=== PATIENT | male | born 1990 | race Caucasian/White ===

== ENCOUNTER 2020-03-13 09:23 | Emergency (ER) | payer BC ==
[~2020-03-13] VITALS: Ht 177.8 cm; Wt 82.0 kg
[2020-03-13 09:44] VITALS: BP 151/84
[2020-03-13 09:59] LABS: BASOPHILS % 0.5 % (0.0-2.0); EOSINOPHILS % 0.6 % (0.0-5.0); HEMATOCRIT. 42.3 % (42.0-52.0); HEMOGLOBIN. 14.6 g/dL (14.0-18.0); LYMPHOCYTES % 19.1 % (20.0-50.0); MEAN CORPUSCULAR HEMOGLOBIN 31.4 pg (28.0-32.0); MEAN CORPUSCULAR VOLUME 90.7 fL (80.0-94.0); MEAN PLATELET VOLUME 8.3 fl (7.4-10.4); MONOCYTES % 13.2 % (2.0-8.0); NEUTROPHILS % 66.6 % (40.0-76.0); PLATELET 184 x1000/uL (130-400); RED BLOOD CELL COUNT 4.67 mill/uL (4.7-6.1)
[2020-03-13 10:04] LABS: CHLORIDE 105 mEq/L (98-107)
[2020-03-13 10:08] LABS: ETHANOL BLOOD < 10 mg/dL
== END 2020-03-13 12:23 | disposition home or self-care (01) ==
LOC: ER 09:23
DX: F20.9 Schizophrenia, unspecified (principal); Z76.0 Encounter for issue of repeat prescription; R00.0 Tachycardia, unspecified; R03.0 Elevated blood-pressure reading, without diagnosis of hypertension
CPT/HCPCS: 36415; 71045; 80053; 80307; 80320; 80329; 85025; 99284; G0480

== ENCOUNTER 2020-03-14 03:23 | Emergency (ER) | payer BC ==
[~2020-03-14] VITALS: Ht 182.9 cm; Wt 87.0 kg
[2020-03-14] MEDS ORDERED: ZIPRASIDONE MESYLATE 20MG/VIAL IM ONE (05:30)
[2020-03-14 06:00] VITALS: BP 129/79
== END 2020-03-14 06:42 | disposition home or self-care (01) ==
LOC: ER 03:23
DX: F41.9 Anxiety disorder, unspecified (principal); F20.9 Schizophrenia, unspecified; I49.9 Cardiac arrhythmia, unspecified; Z88.8 Allergy status to other drugs, medicaments and biological substances; Z88.1 Allergy status to other antibiotic agents
CPT/HCPCS: 93005; 99283; J3486

== ENCOUNTER 2020-05-03 08:11 | Emergency (ER) | payer BC, MEDICAID ==
[~2020-05-03] VITALS: Ht 177.8 cm; Wt 73.0 kg
[2020-05-03 08:17] VITALS: BP 144/86
[2020-05-03] MEDS ORDERED: ACETAMINOPHEN 325MG TABLET PO ONE (08:45)
[2020-05-03 11:19] LABS: CHLORIDE 105 mEq/L (98-107)
[2020-05-03 11:22] LABS: BASOPHILS % 0.5 % (0.0-2.0); EOSINOPHILS % 0.9 % (0.0-5.0); HEMATOCRIT. 42.8 % (42.0-52.0); HEMOGLOBIN. 14.5 g/dL (14.0-18.0); LYMPHOCYTES % 22.5 % (20.0-50.0); MEAN CORPUSCULAR HEMOGLOBIN 30.6 pg (28.0-32.0); MEAN CORPUSCULAR VOLUME 90.6 fL (80.0-94.0); MEAN PLATELET VOLUME 8.5 fl (7.4-10.4); MONOCYTES % 12.2 % (2.0-8.0); NEUTROPHILS % 63.9 % (40.0-76.0); PLATELET 169 x1000/uL (130-400); RED BLOOD CELL COUNT 4.73 mill/uL (4.7-6.1); RED CELL DISTRIBUTION WIDTH 13.4 % (11.6-14.6)
[2020-05-03 11:27] LABS: INR 1.1; PROTHROMBIN TIME 11.9 sec (9.6-11.0)
[2020-05-03] MEDS ORDERED: POTASSIUM CHLORIDE 20MEQ TABLET SR PO ONE (12:15)
[2020-05-03] MEDS ORDERED: DIATR MEGLU/DIATRIZOATE SOLN 120ML ONE ×2 (15:40→16:34)
== END 2020-05-03 18:26 | disposition home or self-care (01) ==
LOC: ER 08:33 → EDBEDREQ 11:54 → EDBEDREQTM 12:02 → EDBEDREQ 12:02 → CANRESERV 15:45 → ENRESERV 15:45 → ER 18:26 → CANBEDREQ 19:40
DX: K56.1 Intussusception (principal); F20.9 Schizophrenia, unspecified
CPT/HCPCS: 36415; 74018; 74176; 74250; 80053; 83690; 85025; 85610; 99285; Q9963

== ENCOUNTER 2020-05-18 13:21 | Emergency (ER) | payer BC, MEDICAID ==
[~2020-05-18] VITALS: Ht 182.9 cm; Wt 91.0 kg
[2020-05-18 14:37] LABS: BASOPHILS % 0.6 % (0.0-2.0); HEMATOCRIT. 44.2 % (42.0-52.0); LYMPHOCYTES % 24.4 % (20.0-50.0); MEAN CORPUSCULAR HEMOGLOBIN 30.2 pg (28.0-32.0); MEAN CORPUSCULAR VOLUME 88.9 fL (80.0-94.0); MEAN PLATELET VOLUME 8.3 fl (7.4-10.4); MONOCYTES % 10.8 % (2.0-8.0); NEUTROPHILS % 62.2 % (40.0-76.0); PLATELET 161 x1000/uL (130-400); RED BLOOD CELL COUNT 4.97 mill/uL (4.7-6.1); RED CELL DISTRIBUTION WIDTH 12.9 % (11.6-14.6)
[2020-05-18 14:38] VITALS: BP 133/71
[2020-05-18 14:44] LABS: CHLORIDE 108 mEq/L (98-107)
[2020-05-18 14:49] LABS: ETHANOL BLOOD < 10 mg/dL
== END 2020-05-18 15:28 | disposition left against medical advice (07) ==
LOC: ER 13:29
DX: S09.8XXA Other specified injuries of head, initial encounter (principal); F20.9 Schizophrenia, unspecified; F22 Delusional disorders; Z88.1 Allergy status to other antibiotic agents; Y04.0XXA Assault by unarmed brawl or fight, initial encounter; Y93.89 Activity, other specified; Y92.89 Other specified places as the place of occurrence of the external cause; Y99.8 Other external cause status
CPT/HCPCS: 36415; 80053; 80307; 80320; 80329; 85025; 93005; 99283; G0480